=== PATIENT | female | born 1995 | race Caucasian/White ===

== ENCOUNTER 2019-02-18 00:40 | Emergency (ER) | payer OTHER ==
[~2019-02-18] VITALS: Ht 170.2 cm; Wt 81.8 kg
[2019-02-18 00:41] VITALS: BP 132/71
[2019-02-18] MEDS ORDERED: NS 1,000 ML IV ONE (01:00)
[2019-02-18 01:15] LABS: BASO % 0.6 % (0.0-1.0); EOS # 0.1 10^3/uL (0.0-0.50); EOS % 1.6 % (0.0-3.0); HEMATOCRIT 38.2 % (36.0-47.0); HEMOGLOBIN 12.6 g/dl (12.0-15.5); LYMPH # 2.8 10^3/uL (1.5-6.5); LYMPH % 41.3 % (24.0-44.0); MEAN CORPUSCULAR HEMOGLOBIN 32.1 pg (27.0-33.0); MEAN CORPUSCULAR VOLUME 97.2 fl (80.0-96.0); MONO # 0.7 10^3/uL (0.0-0.8); MONO % 9.9 % (0.0-5.0); NEUTROPHILS # 3.2 10^3/uL (1.8-7.7); NEUTROPHILS % 46.5 % (36.0-66.0); PLATELET COUNT, AUTOMATED 276 10^3/uL (150-450); RED BLOOD COUNT 3.93 10^6/uL (4.00-5.40); WHITE BLOOD COUNT 6.9 10^3/uL (4.0-10.0)
[2019-02-18] MEDS ORDERED: KETOROLAC 30 MG/ML VIAL (J1885) IV ONE (01:30)
[2019-02-18] MEDS ORDERED: ONDANSETRON 4MG/2ML VIAL (J2405) IV ONE (01:30)
[2019-02-18 01:34] LABS: HCG, SERUM QUALITATIVE NEGATIVE (NEGATIVE)
[2019-02-18 01:42] LABS: ALBUMIN 3.7 GM/DL (3.2-5.2); ALT/SGPT 18 U/L (12-78); BILIRUBIN,DIRECT < 0.1 MG/DL (0.0-0.2); BILIRUBIN,TOTAL 0.3 MG/DL (0.2-1.0); LIPASE 163 U/L (73-393)
--- NOTE | 2019-02-18 02:30 | REPVR ---
EXAM: CT Abdomen and Pelvis Without Contrast EXAM DATE/TIME: 02/18/2019 1:39 AM CLINICAL HISTORY: 23 years old, female; Abdominal pain; Flank; Right; Additional info: R flank pain, polyuria, urgency TECHNIQUE: Imaging protocol: Computed tomography of the abdomen and pelvis without contrast. Radiation optimization: All CT scans at this facility use at least one of these dose optimization techniques: automated exposure control; mA and/or kV adjustment per patient size (includes targeted exams where dose is matched to clinical indication); or iterative reconstruction. COMPARISON: No relevant prior studies available. FINDINGS: Evaluation of solid organs, vessels and bowel is limited secondary to lack of IV and oral contrast administration. Liver: No discreet mass. Gallbladder and bile ducts: No calcified stones. No ductal dilation. Pancreas: No ductal dilation. Spleen: No splenomegaly. Adrenals: No mass. Kidneys and ureters: No hydroureteronephrosis. No perinephric inflammatory changes. Stomach and bowel: No evidence of obstruction. Appendix: No evidence of appendicitis. Intraperitoneal space: No free air. No significant fluid collection. Vasculature: No abdominal aortic aneurysm. Lymph nodes: No enlarged lymph nodes. Bladder: Thickening versus under distention of the urinary bladder. Reproductive: Unremarkable as visualized. Bones/joints: No acute fractures or dislocations. Soft tissues: Unremarkable. IMPRESSION: No evidence of obstructive uropathy. Thickened appearance of the bladder wall may be related to underdistention, however, please correlate clinically for possible cystitis. Otherwise no bowel obstruction, free intraperitoneal air/fluid or sizable inflammatory collections noted on this noncontrast study. Electronically signed by: Edson Wallis On 02/18/2019 02:30:02 AM
[2019-02-18] MEDS ORDERED: CIPROFLOXACIN 500 MG TAB PO ONE (03:30)
[2019-02-18] MEDS ORDERED: CIPR-249 PO (03:30)
[2019-02-18] MEDS ORDERED: PYRI1TAB5 PO (03:30)
[2019-02-18] MEDS ORDERED: PHENAZOPYRIDINE 100 MG TAB PO ONE (03:30)
== END 2019-02-18 03:44 | disposition home or self-care (01) ==
LOC: M ED 00:40
DX: N39.0 Urinary tract infection, site not specified (principal); N39.41 Urge incontinence
CPT/HCPCS: 74176; 80047; 80076; 81001; 83690; 84703; 85025; 87086; 96374; 96375; 99284; J1885; J2405

== ENCOUNTER → 2019-04-04 | Outpatient (REF) | payer OTHER ==
[~2019-04-04] MED LIST: CIPR-249 PO; PYRI1TAB5 PO
== END ==
LOC: M SFHCLERA 12:10
PROVIDERS: ATTEND Nurse Practitioner Family
DX: R68.89 Other general symptoms and signs (principal)

== ENCOUNTER → 2019-12-14 | Outpatient (CLI) | payer OTHER ==
[~2019-12-14] MED LIST changes: +METHACHOLINE KIT (J7674) INH ONE
--- NOTE | 2019-12-14 16:03 | PFTRPT ---
Height: 67.00 Inches Weight: 190.00 Lbs BSA: 1.98 Diagnosis: J45.4 DATE OF PROCEDURE: 12/14/2019 ORDERED BY: Dr. Hallman INTERPRETATION: Study of excellent technical quality. Under protocol, methacholine was administered. At a dose of 2.5 mg (13.875 CDUs), a 41% decline in the FEV1 was noted. PC of 0.55 is significant. Flow rates did return to baseline post bronchodilator administration. IMPRESSION: Positive methacholine challenge study. MTDD
== END ==
LOC: M CARPUL 14:41
PROVIDERS: ATTEND Internal Medicine Pulmonary Disease
DX: J45.40 Moderate persistent asthma, uncomplicated (principal)